=== PATIENT | female | born 1990 | race Hispanic/Latino ===

== ENCOUNTER 2020-12-27 19:34 | Emergency (ER) | payer SELFPAY ==
--- OUTSIDE RECORDS SUMMARY | 2020-12-27 19:37 | XMS REPORT | Continuity of Care Document ---
:1990 Author Organization [facility] t Address [address] [place] [address] Care Team Providers Name Role Phone Navarro GALLEGOS Attending Clinician 2, Lab Attending Clinician Unavailable Problems This patient has no known problems. Allergies, Adverse Reactions, Alerts This patient has no known allergies or adverse reactions. Medications This patient has no known medications. Procedures This patient has no known procedures. Encounters Start End Encounter Admission Attending Care Care Encounter Source Date/Time Date/Time Type Type Clinicians Facility Department ID 2019-08-27 2019-08-27 Telemedici Navarro [facility] [id number] 13:07:36 13:22:36 ne Visit Yeimy Sepulveda [id number] [place] [id number] Professja [phone] [address] 2019-08-27 2019-08-27 Telephone Navarro OKNICK [id number] 00:00:00 00:00:00 Yeimy Sepulveda [id number] [place] [id number] Professio [id number] [address] 2019-08-20 2019-08-20 Women Nurse 2, Adc Lab [facility] [id number] 10:00:24 10:15:24 Visit Derick [id number] [place] [id number] Professio [id number] [address] 2019-08-20 2019-08-20 Office Navarro OKNICK [id number] 09:11:50 09:48:50 Visit Yeimy Sepulveda [id number] [place] [id number] Professio [phone] [facility] [address] Results This patient has no known results.
--- NOTE | 2020-12-27 22:38 | ER ---
Nurse's Notes [facility] Name: Sue Walker Page Age: 30 yrs Sex: Female : 1990 Arrival Date: 12/27/2020 Time: 19:37 Bed 12 Private MD: Diagnosis: Coronavirus infection, unspecified Presentation: 12/27 19:59 Chief complaint: Patient states: Sore throat x 5 days, nasal congestion that began 2 lp1 days ago; No fever, nausea, vomiting, diarrhea. Coronavirus screen: Client denies travel out of the [place] in the last 14 days. congestion, runny nose, sore throat, Client presents with at least one sign or symptom that may indicate coronavirus-19. Standard/surgical mask placed on the client. Ebola Screen: No symptoms or risks identified at this time. Risk Assessment: Do you want to hurt yourself or someone else? Patient reports no desire to harm self or others. Onset of symptoms was December 22, 2020. 19:59 Method Of Arrival: Ambulatory lp1 19:59 Acuity: JOSHUA 4 lp1 20:01 Initial Sepsis Screen: Does the patient meet any 2 criteria? No. Patient's initial lp1 sepsis screen is negative. Does the patient have a suspected source of infection? No. Patient's initial sepsis screen is negative. 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 - Social history:: Smoking status: Patient denies any tobacco usage or history of. Screenin:30 Abuse screen: Denies threats or abuse. Denies injuries from another. Nutritional lp1 screening: No deficits noted. Tuberculosis screening: No symptoms or risk factors identified. Fall Risk None identified. Assessment: 22:30 General: Appears in no apparent distress. Behavior is calm, cooperative. Pain: lp1 Complains of pain in throat. Neuro: Level of Consciousness is awake, alert, obeys commands. Cardiovascular: Patient's skin is warm and dry. Respiratory: Airway is patent Respiratory effort is even, unlabored. GI: No signs and/or symptoms were reported involving the gastrointestinal system. : No signs and/or symptoms were reported regarding the genitourinary system. EENT: Reports nasal congestion. Derm: Skin is pink, warm \T\ dry. Musculoskeletal: No deficits noted. Vital Signs: 20:01 BP 121 / 89; Pulse 93; Resp 16; Temp 98.3(O); Pulse Ox 99% on R/A; Weight 67.13 kg (R); lp1 Height 5 ft. 2 in. (157.48 cm); Pain 3/10; 20:01 Body Mass Index 27.07 (67.13 kg, 157.48 cm) lp1 ED Course: 19:37 Patient arrived in ED. bp1 20:01 Triage completed. lp1 20:01 Arm band placed on. lp1 20:09 COVID swab sent to lab. Strep swab sent to lab. lp1 22:20 Yoan Roca PA is PHCP. cp 22:20 Bhavesh Feng MD is Attending Physician. cp 22:30 Patient has correct armband on for positive identification. lp1 22:30 No provider procedures requiring assistance completed. lp1 22:45 Patient did not have IV access during this emergency room visit. fu Administered Medications: No medications were administered Outcome: 22:38 Discharge ordered by . 22:47 Discharged to home ambulatory. fu 22:47 Condition: stable 22:47 Discharge instructions given to patient, Instructed on discharge instructions, follow up and referral plans. Demonstrated understanding of instructions, follow-up care, Prescriptions given X 0 22:47 Patient left the ED. fu Signatures: Aida Collins RN RN [facility] Yoan Roca PA PA cp Umadhay, Felix, RN RN Rebeca Rincon bp1
--- NOTE | 2020-12-27 22:39 | EDPHYS ---
Physician Documentation [facility] Name: Sue Walker Page Age: 30 yrs Sex: Female : 1990 Arrival Date: 12/27/2020 Time: 19:37 Bed 12 Private MD: ED Physician Bhavesh Feng HPI: 12/27 22:30 This 30 yrs old Female presents to ER via Ambulatory with complaints of cp Congestion, Covid Symptoms. 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 - Social history:: Smoking status: Patient denies any tobacco usage or history of. ROS: 22:32 Eyes: Negative for injury, pain, redness, and discharge. cp 22:32 Constitutional: Negative for body aches, chills, fever, poor PO intake. 22:32 ENT: Positive for sore throat, Negative for drainage from ear(s), ear pain, difficulty swallowing, difficulty handling secretions. 22:32 Neck: Negative for pain with movement, pain at rest, stiffness. 22:32 Cardiovascular: Negative for chest pain. 22:32 Respiratory: Positive for cough, Negative for shortness of breath, wheezing. 22:32 Abdomen/GI: Negative for abdominal pain, nausea, vomiting, and diarrhea. 22:32 Skin: Negative for rash. 22:32 All other systems are negative. Exam: 22:33 Head/Face: Normocephalic, atraumatic. cp 22:33 Constitutional: The patient appears in no acute distress, alert, awake, non-toxic, well developed, well nourished. 22:33 Eyes: Periorbital structures: appear normal, Conjunctiva: normal, no exudate, no injection, Sclera: no appreciated abnormality, Lids and lashes: appear normal, bilaterally. 22:33 ENT: External ear(s): are unremarkable, Ear canal(s): are normal, clear, TM's: bulging, is not appreciated, bilaterally, dullness, bilaterally, erythema, is not appreciated, bilaterally, Nose: is normal, Mouth: Lips: moist, Oral mucosa: pink and intact, moist, Posterior pharynx: Airway: no evidence of obstruction, patent, Tonsils: no enlargement, no exudate, Uvula: midline, erythema, that is mild, Voice: is normal. 22:33 Neck: ROM/movement: is normal, is supple, no meningismus, no nuchal rigidity, Lymph nodes: no appreciated lymphadenopathy. 22:33 Chest/axilla: Inspection: normal. 22:33 Cardiovascular: Rate: normal, Rhythm: regular. 22:33 Respiratory: the patient does not display signs of respiratory distress, Respirations: normal, no use of accessory muscles, no retractions, labored breathing, is not present, Breath sounds: are clear throughout, no decreased breath sounds, no stridor, no wheezing. 22:33 Abdomen/GI: Exam negative for discomfort, distension, guarding, Inspection: abdomen appears normal. Vital Signs: 20:01 BP 121 / 89; Pulse 93; Resp 16; Temp 98.3(O); Pulse Ox 99% on R/A; Weight 67.13 kg (R); lp1 Height 5 ft. 2 in. (157.48 cm); Pain 3/10; 20:01 Body Mass Index 27.07 (67.13 kg, 157.48 cm) lp1 MDM: 22:31 Patient medically screened. cp 22:35 Differential diagnosis: heather-egan virus, group A strep tonsillitis, laryngitis, cp peritonsillar abscess pharyngitis, retropharyngeal abcess. Data reviewed: vital signs, nurses notes, lab test result(s), and as a result, I will discharge patient. Counseling: I had a detailed discussion with the patient and/or guardian regarding: the historical points, exam findings, and any diagnostic results supporting the discharge/admit diagnosis, lab results, to return to the emergency department if symptoms worsen or persist or if there are any questions or concerns that arise at home, VSS. Patient appears non-toxic and no signs of respiratory distress. Will discharge to home for continued monitoring. 12/27 20:06 Order name: Group A Streptococcus Rapid Sc EDIL 12/27 20:32 Order name: Throat Culture EDIL 12/27 22:05 Order name: SARS-COV-2 RT PCR EDMS Administered Medications: No medications were administered Disposition: 12/28 05:58 Co-signature as Attending Physician, Bhavesh Feng MD. [email or web address] Disposition Summary: 12/27/20 22:38 Discharge Ordered Location: Home cp Problem: new cp Symptoms: have improved cp Condition: Stable cp Diagnosis - Coronavirus infection, unspecified cp Followup: cp - With: Private Physician - When: 2 - 3 days - Reason: Worsening of condition Discharge Instructions: - Discharge Summary Sheet cp - COVID-19 cp - COVID-19 Frequently Asked Questions cp - Things to Know about the COVID-19 Pandemic - [facility] cp - 10 Things You Can Do to Manage Your COVID-19 Symptoms at Home - [facility] cp - Prevent the Spread of COVID-19 if You Are Sick - [facility] cp Forms: - Medication Reconciliation Form cp - Thank You Letter cp - Antibiotic Education cp - Prescription Opioid Use cp Signatures: Dispatcher [employer] EDMS Aida Collins RN RN lp1 Yoan Roca PA PA cp Bhavesh Feng MD MD [email or web address] Corrections: (The following items were deleted from the chart) 12/27 20:45 20:06 Group A Streptococcus Rapid [id number] ordered. EDMS EDMS
[2020-12-27 22:55] VITALS: BP 121/89; TEMP 98.3; O2SAT 99
== END 2020-12-27 22:47 | disposition home or self-care (01) ==
LOC: ER 19:34
DX: U07.1 COVID-19 (principal)
CPT/HCPCS: 87070; 87081; 99283; U0003